=== PATIENT | male | born 1985 | race Hispanic/Latino ===

== ENCOUNTER 2016-09-19 13:53 | Emergency (ER) | payer SELFPAY ==
[~2016-09-19] VITALS: Ht 162.6 cm; Wt 67.3 kg
[~2016-09-19 13:53] MED LIST: NAPR550T44 PO
[2016-09-19 13:56] VITALS: BP 138/69; PULSE 109; RESP 20; O2SAT 97
--- NOTE | 2016-09-19 15:47 | ED.REPORT ---
HPI-Extremity Problem Upper Date of Service Sep 19, 2016 ED Provider: Kristal Barnes History of Present Illness: pain in right shoulder, happened a month ago. no primary care. works out has continued to work out. heard a pop in the front of the chest today. fine now. sharp pain with lifting right arm 03/30. Was lifting 245 lbs when he injured shoulder, today was lifting 100 lbs has continued to work during this time Nursing Notes Chief Complaint: Extremity Trauma Nursing Notes Reviewed: Yes Allergies: Coded Allergies: No Known Allergies (Unverified , 10/08/15) Scheduled PRN Naproxen Sodium (Naproxen Sodium) 550 Mg Tab 550 MG PO BID PRN PRN For Pain General Time Seen by MD: 15:44 Chief Complaint Shoulder injury right Hx Obtained From: Patient Onset Occurred: More than a week ago... 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 Ambulatory Status Independent Review of Systems Basic Review of Systems Eyes: Vision NL, No discharge ENT: Hearing NL, No pain, No nasal congestion, No pharyngeal pain Respiratory: No shortness of breath, No cough, No wheeze Cardiovascular: No chest pain, No dyspnea on exertion, No orthopnea, No parox noct dyspnea, No palpitations GI: No abdominal pain, No anorexia, No nausea, No vomiting : No dysuria, No frequency Hematologic: No bleeding, No bruising Endocrine: No cold intolerance, No heat intolerance, No weight gain, No weight loss Allergy / Immune: No allergy Psychiatric: Normal thought content Physical Exam Initial Vital Signs Vital Signs (First) Date Time Temp Pulse Resp B/P Pulse Ox O2 Delivery O2 Flow Rate FiO2 09/19/16 13:56 36.9 109 20 138/69 97 Room Air Initial VS: Reviewed, Vital signs normal General/Constitutional: Well-developed, Well-nourished Head / Eyes: Atraumatic, Normocephalic, PERRL ENT: Mucous membranes moist, Conjunctiva normal, No scleral icterus Neck: Supple, Non-tender, Full range of motion Respiratory: Breath sounds normal, Clear to auscultation, No respiratory distress Cardiovascular: Regular rate & rhythm, Heart sounds normal, Intact distal pulses Abdomen / GI: Soft, Non-tender, No guarding, No rebound, No distention Back: No CVA tenderness Lymphatic: No lymphadenopathy Lower Extremities: Vascular intact, Neuro intact, No swelling, No tenderness Skin: Warm, Dry, No cyanosis Neurologic: Alert, Oriented, Nonfocal Psychiatric: Mood/affect normal, Behavior normal, Normal thought content General/Constitutional: Awake, Alert, No acute distress Respiratory / Chest: Atraumatic, Breath sounds NL, Breath sounds = bilat Cardiovascular: Heart rate NL, Regular rhythm, Heart sounds NL, No gallop Upper Extremity / MS: Atraumatic, Inspection NL, Full range of motion ( limitedextension of arm), No swelling, Non-tender Right Shoulder: Positive: ROM reduced (decreased extension of arm) patient points to anterior shoulder as greatest pain. 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 Use an ice massage after work or the gym. Do not start lifting 100 lbs right away. Start with 10 lbs for a week and then go to 20 lbs. If at the end of 2 weeks this is improving, it is muscle and it will continue to improve with moderation. If after 2 weeks there is no improvement, you will need to get insurance and follow up with ortho. Dr. Perez would be happy to see you. Please establish in primary care. Consider the residency clinic. Referrals: Jordy Perez DO [facility] EDSupervising Provider for APC: Mehran Price MD copies to: Jordy Perez DO; [facility] Kristal Barnes Sep 19, 2016 15:47
== END 2016-09-19 16:08 | disposition home or self-care (01) ==
LOC: SED 13:53
DX: S43.401A Unspecified sprain of right shoulder joint, initial encounter (principal); X50.0XXA Overexertion from strenuous movement or load, initial encounter; Y93.89 Activity, other specified; Y92.89 Other specified places as the place of occurrence of the external cause; Y99.8 Other external cause status; F17.200 Nicotine dependence, unspecified, uncomplicated